=== PATIENT | male | born 2000 | race Caucasian/White ===

== ENCOUNTER 2022-09-19 12:58 | Emergency (ER) | payer OTHER, MEDICAID ==
[2022-09-19] MEDS ORDERED: Lidocaine 1% with EPINEPHrine 1:100,000 20 ML MDV INFILT ONE (13:37)
[2022-09-19] MEDS ORDERED: Bupivacaine 0.5% 30 ML SDV INFILT ONE (13:38)
[2022-09-19] MEDS ORDERED: Bacitracin Oint 1 GM U/D Packet TOP ONE (13:38)
== END 2022-09-19 14:28 | disposition home or self-care (01) ==
LOC: DL.ED 12:58
DX: S81.011A Laceration without foreign body, right knee, initial encounter (principal); W26.8XXA Contact with other sharp object(s), not elsewhere classified, initial encounter
CPT/HCPCS: 12002; 99282; 99283; A9270-GY; J3490